=== PATIENT | male | born 1995 | race Caucasian/White ===

== ENCOUNTER 2019-07-10 20:01 | Emergency (ER) | payer MEDICAID ==
[~2019-07-10] VITALS: Ht 175.3 cm; Wt 90.0 kg
[2019-07-10] MEDS ORDERED: IBUPROFEN 400 MG TABLET PO ONE (23:30)
[2019-07-10] MEDS ORDERED: ONDANSETRON HCL 4 MG TABLET PO ONE (23:30)
[2019-07-10] MEDS ORDERED: LIDOCAINE 5% TRANSDERMAL PATCH TD ONE (23:30)
[2019-07-10] MEDS ORDERED: ACETAMINOPHEN 325 MG TABLET PO ONE (23:30)
[2019-07-10 23:58] VITALS: BP 132/75
== END 2019-07-11 00:09 | disposition home or self-care (01) ==
LOC: EMS 20:03
DX: R11.0 Nausea (principal); M54.9 Dorsalgia, unspecified; R42 Dizziness and giddiness; T40.2X5A Adverse effect of other opioids, initial encounter; Y92.89 Other specified places as the place of occurrence of the external cause
CPT/HCPCS: 99284; Q0162